=== PATIENT | female | born 1995 | race Caucasian/White ===

== ENCOUNTER 2021-04-29 15:18 | Emergency (ER) | payer OTHER ==
[2021-04-29 15:28] VITALS: BP 132/83
[2021-04-29] MEDS ORDERED: COLACE100 M1 PO (15:53)
[2021-04-29] MEDS ORDERED: ANUSOL HC CREAM30 GM TP (15:53)
[2021-04-29] MEDS ORDERED: MIRALAX17 GM PO (15:53)
[2021-04-29] MEDS ORDERED: ANUCORT HC25 MG REC (15:53)
== END 2021-04-29 15:57 | disposition home or self-care (01) ==
LOC: ED 15:18
DX: K64.9 Unspecified hemorrhoids (principal)